=== PATIENT | male | born 1960 | race Caucasian/White ===

== ENCOUNTER 2018-05-09 12:41 | Inpatient (IN) | payer OTHER ==
[2018-05-09 13:09] VITALS: BMI 28.7
--- NOTE | 2018-05-09 15:56 | HP ---
CIWA Score Nausea/Vomitin Muscle Tremors: 4-Moderate,w/Arms Extend Anxiety: 2 Agitation: 0-Normal Activity Paroxysmal Sweats: No Perspiration Orientation: 2-Disoriented Date<2 days Tacttile Disturbances: 2-Mild Itch/Numbness/Burn Auditory Disturbances: 0-None Visual Disturbances: 0-None Headache: 2-Mild CIWA-Ar Total Score: 14 - Admission Criteria [facility]ASAS Guidelines: Admission for Medically Managed Detox: Requires at least one of the followin. CIWA greater than 12 2. Seizures within the past 24 hours 3. Delirium tremens within the past 24 hours 4. Hallucinations within the past 24 hours 5. Acute intervention needed for co occurring medical disorder 6. Acute intervention needed for co occurring psychiatric disorder 7. Severe withdrawal that cannot be handled at a lower level of care (continued vomiting, continued diarrhea, abnormal vital signs) requiring intravenous medication and/or fluids 8. Admission [facility] Chief Complaint: ETOH WITHDRAWAL SX. Allergies/Adverse Reactions: Allergies Allergy/AdvReac Type Severity Reaction Status Date / Time No Known Allergies Allergy Verified 05/09/18 15:15 History of Present Illness: PATIENT PRESENTS WITH ETOH WITHDRAWAL SX. THIS IS PATIENT'S FIRST VISIT AT [facility] X YEARS. LAST DETOX WAS IN [facility] LAST MONTH. PATIENT STARTED DRINKING AT AGE 14, DRINKS 20 12 OUNCE BEERS DAILY, LAST TIME HE DRANK BEER WAS TODAY. RAJEEV 0.181. PATIENT ALSO SMOKES MARIJUANA DAILY, AMOUNT VARIES. LAST TIME HE SMOKED WAS LAST NIGHT. DENIES HAVING SEIZURES. + FALLS AND BLACKOUTS. PATIENT HAD FALL 3 WEEKS AGO AND FRACTURED 3 RIGHT RIBS AND LEFT FOREARM. HAS LEFT BRACE IN PLACE. PATIENT WAS PRESCRIBED LIBRIUM AT THAT TIME BUT STOPPED TAKING IT DUE TO LIVER SIDE EFFECTS. PATIENT PMH INCLUDES LIVER CIRRHOSIS, CAD, S/P LEFT FEM-POP BYPASS, COPD, HTN AND DEPRESSION/ANXIETY. DENIES SI/HI AND SUICIDE ATTEMPTS. Exam Limitations: Intoxication - Ebola screening Have you traveled outside of the country in the last 21 days: No Have you had contact with anyone from an Ebola affected area: No Have you been sick,other than usual withdrawal symptoms: No Do you have a fever: No - Review of Systems Constitutional: Night Sweats, Changes in sleep EENT: reports: Throat Pain Respiratory: reports: No Symptoms reported Cardiac: reports: Edema GI: reports: Diarrhea, Poor Fluid Intake, Abdominal cramping : reports: Frequency (DUE TO ETOH INTAKE) Musculoskeletal: reports: Joint Pain, Muscle Pain Integumentary: reports: Flushing Neuro: reports: Headache, Numbness, Tingling, Tremors Endocrine: reports: Flushing Hematology: reports: No Symptoms Reported Psychiatric: reports: Orientated x3, Anxious, Depressed Patient History - Patient Medical History Hx Anemia: No Hx Asthma: Yes Hx Chronic Obstructive Pulmonary Disease (COPD): Yes Hx Cancer: No Hx Cardiac Disorders: No Hx Congestive Heart Failure: No Hx Hypertension: Yes Hx Hypercholesterolemia: No Hx Pacemaker: No HX Cerebrovascular Accident: No Hx Seizures: No Hx Dementia: No Hx Diabetes: No Hx Gastrointestinal Disorders: Yes (acid reflux.) Hx Liver Disease: Yes (CIRRHOSIS OF LIVER) Hx Genitourinary Disorders: No Hx Sexually Transmitted Disorders: No Hx Renal Disease (ESRD): No Hx Thyroid Disease: No Hx Human Immunodeficiency Virus (HIV): No Hx Hepatitis C: No Hx Depression: Yes Hx Suicide Attempt: No Hx Bipolar Disorder: No Hx Schizophrenia: No - Patient Surgical History Past Surgical History: Yes Other Surgical History: R leg bypass 09/13 and angioplasty on L leg 2016 Anesthesia Reaction: (tonsilectomy) - PPD History Previous Implant?: Yes Documented Results: Negative w/proof Implanted On Prior [facility] Admission?: No PPD to be Administered?: Yes - Smoking Cessation Smoking history: Current every day smoker Have you smoked in the past 12 months: Yes Aproximately how many cigarettes per day: 20 Hx Chewing Tobacco Use: No Initiated information on smoking cessation: Yes 'Breaking Loose' booklet given: 05/09/18 - Substance & Tx. History Hx Alcohol Use: Yes Hx Substance Use: Yes Substance Use Type: Alcohol, Marijuana Hx Substance Use Treatment: Yes - Substances Abused Alcohol Route: Oral Frequency: Daily Amount used: 20 beers Age of first use: 14 Date of Last Use: 05/09/18 Marijuana/Hashish Route: Smoking Frequency: Daily Amount used: 1 bowl of a pipe Age of first use: 14 Date of Last Use: 05/09/18 Family Disease History - Family Disease History Family Disease History: Heart Disease: Father Admission Physical Exam [facility] - Vital Signs Vital Signs: Vital Signs - 24 hr 05/09/18 13:04 Temperature 97.8 F Pulse Rate 58 L Respiratory 18 Rate Blood Pressure 123/70 - Physical General Appearance: Yes: Appropriately Dressed, Intoxicated, Tremorous, Anxious HEENTM: Yes: EOMI, Hearing grossly Normal, Normal ENT Inspection, Normocephalic , Normal Voice, NAN, Pharynx Normal Respiratory: Yes: Chest Non-Tender, Lungs Clear, No Respiratory Distress, No Accessory Muscle Use, Rhonchi (CLEARS WITH COUGH) Neck: Yes: No masses,lesions,Nodules, Supple, Trachea in good position Breast: Yes: Breast Exam Deferred Cardiology: Yes: Regular Rhythm, Regular Rate, S1, S2, Edema (LEFT LOWER LEG) Abdominal: Yes: Normal Bowel Sounds, Non Tender, Soft Genitourinary: Yes: Frequency Back: Yes: Muscle Spasm Musculoskeletal: Yes: full range of Motion, Gait Steady, Other (S/O LEFT FOREARM FRACTURE, HAS BRACE IN PLACE) Extremities: Yes: Non-Tender, Tremors, Swelling Neurological: Yes: test technician II-XII NML intact, Fully Oriented, Alert, Motor Strength 5/5, Depressed Affect Integumentary: Yes: Warm, Erythema Lymphatic: Yes: Within Normal Limits - Diagnostic (1) Alcohol dependence with uncomplicated withdrawal Current Visit: Yes Status: Acute (2) HTN (hypertension) Current Visit: Yes Status: Chronic Qualifiers: Hypertension type: unspecified Qualified Code(s): I10 - Essential (primary ) hypertension (3) Marijuana dependence Current Visit: Yes Status: Chronic (4) Left leg swelling Current Visit: Yes Status: Chronic (5) Tobacco use Current Visit: Yes Status: Chronic (6) COPD (chronic obstructive pulmonary disease) Current Visit: Yes Status: Chronic Qualifiers: Emphysema type: unspecified (7) Depressed affect Current Visit: Yes Status: Chronic Cleared for Admission [facility] - Detox or Rehab [facility] Level of Care: Medically Managed Detox Regimen/Protocol: Not Applicable (ATIVAN PROTOCOL) [facility] Breath Alcohol Content Breath Alcohol Content: 0.181 Urine Drug Screen - Results Drug Screen Negative: No Urine Drug Screen Results: THC-Marijuana, BZO-Benzodiazepines Inpatient Rehab Admission - Rehab Decision to Admit Inpatient rehab admission?: No
[2018-05-09] MEDS ORDERED: METHOCARBAMOL 500 MG TABLET PO PRN (16:07)
[2018-05-09] MEDS ORDERED: MAGNESIUM HYDROX 2400MG/30ML ORAL SUSPENSION 30 ML CUP PO PRN (16:07)
[2018-05-09] MEDS ORDERED: MAGNESIUM CITRATE 300 ML BOTTLE PO PRN (16:07)
[2018-05-09] MEDS ORDERED: guaiFENesin 200 MG/10 ML 10 ML UNIT-DOSE CUPS PO PRN (16:07)
[2018-05-09] MEDS ORDERED: MENTHOL/PHENOL 1 EACH UD MM PRN (16:07)
[2018-05-09] MEDS ORDERED: DICYCLOMINE HCL 10 MG CAPSULE PO PRN (16:07)
[2018-05-09] MEDS ORDERED: MELATONIN 5 MG TABLETS PO PRN (16:07)
[2018-05-09] MEDS ORDERED: MAG HYDROX/AL HYDROX/SIMETH 30 ML UNIT-DOSE CUP PO PRN (16:07)
[2018-05-09] MEDS ORDERED: ACETAMINOPHEN 325 MG TABLET (FP) PO PRN ×2 (16:07)
[2018-05-09] MEDS ORDERED: hydrOXYzine PAMOATE 25 MG CAPSULE (FP) PO PRN (16:07)
[2018-05-09] MEDS ORDERED: BISMUTH SUBSALICYLATE 524 MG/30 ML UD PO PRN (16:07)
[2018-05-09] MEDS ORDERED: NICOTINE POLACRILEX 2 MG GUM BUC PRN (16:07)
[2018-05-09] MEDS ORDERED: ALBUTEROL SO4 8 GM HFA INHALER IH PRN (16:09)
[2018-05-09] MEDS ORDERED: LORazepam 1 MG TABLET PO PRN (16:11)
[2018-05-09] MEDS: THIAMINE HCL 100 MG TABLET (FP) PO SCH (22:24)
[2018-05-09] MEDS: LORazepam 2 MG TABLET PO SCH (22:24)
[2018-05-09] MEDS: BUDESONIDE/FORMETEROL FUMARATE 160/4.5 mcg INHALER IH SCH (22:27)
[2018-05-09 23:52] LABS: URINE APPEARANCE CLEAR; URINE BILIRUBIN NEGATIVE (<2.0 mg/dL); URINE COLOR YELLOW; URINE GLUCOSE (UA) NEGATIVE (NEGATIVE); URINE KETONE NEGATIVE (NEGATIVE); URINE LEUK ESTERASE NEGATIVE (NEGATIVE); URINE NITRITE NEGATIVE (NEGATIVE); URINE PROTEIN NEGATIVE (NEGATIVE); URINE UROBILINOGEN 4.0 E.U/dl mg/dL (0.2-1.0)
[2018-05-10] MEDS: LORazepam 2 MG TABLET PO SCH ×3 (05:42→17:41)
[2018-05-10] MEDS: PRENATAL VITAMINS W/ FOLIC ACID TABLET (FP) PO SCH (10:05)
[2018-05-10] MEDS: RAMIPRIL 1.25 MG CAPSULE PO SCH (10:06)
[2018-05-10] MEDS: NICOTINE 21 MG/24 HOURS TOPICAL PATCH TD SCH (10:06)
[2018-05-10] MEDS: ASPIRIN 81 MG CHEWABLE TABLETS PO SCH (10:06)
[2018-05-10] MEDS: PANTOPRAZOLE 40 MG TABLET (FP) PO SCH (10:06)
[2018-05-10] MEDS: BUDESONIDE/FORMETEROL FUMARATE 160/4.5 mcg INHALER IH SCH ×2 (10:08→22:24)
[2018-05-10 10:24] LABS: ALBUMIN 3.2 g/dl (3.4-5.0); ALK PHOS 219 U/L (45-117); ANION GAP 5 MMOL/L (8-16); BILIRUBIN,TOTAL 1.2 mg/dL (0.2-1); BLOOD UREA NITROGEN 6 mg/dL (7-18); CALCIUM 8.4 mg/dL (8.5-10.1); CHLORIDE 101 mmol/L (98-107); CO2 31 mmol/L (21-32); CREATININE 0.6 mg/dL (0.55-1.3); GLUCOSE,RANDOM 104 mg/dL (74-106); POTASSIUM 4.2 mmol/L (3.5-5.1); SGOT/AST 49 U/L (15-37); SGPT/ALT 22 U/L (13-61); SODIUM 137 mmol/L (136-145); TOT PROT 6.8 g/dl (6.4-8.2)
[2018-05-10 10:27] LABS: HEMATOCRIT 37.7 % (35.4-49); HEMOGLOBIN 12.5 GM/dL (11.7-16.9); MCH 30.4 pg (25.7-33.7); MCHC 33.3 g/dl (32.0-35.9); MEAN CELL VOLUME 91.4 fl (80-96); MEAN PLT VOLUME 7.9 fl (7.5-11.1); PLATELET COUNT 124 K/MM3 (134-434); RBC 4.12 M/mm3 (4.00-5.60); RDW 16.9 % (11.9-15.9)
--- NOTE | 2018-05-10 10:55 | EKG ---
Test Reason : Blood Pressure : / mmHG Vent. Rate : 058 BPM Atrial Rate : 058 BPM P-R Int : 158 ms QRS Dur : 086 ms QT Int : 450 ms P-R-T Axes : 062 007 068 degrees QTc Int : 441 ms SINUS BRADYCARDIA OTHERWISE NORMAL ECG NO PREVIOUS ECGS AVAILABLE Confirmed by CLOTILED HERNANDEZ, MARAL (2014) on 05/10/2018 10:54:58 AM Referred By: Confirmed By:MARAL MABRY MD
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
--- NOTE | 2018-05-10 18:22 | PN ---
[facility] CIWA - CIWA Score Nausea/Vomitin-No Nausea/No Vomiting Muscle Tremors: 3 Anxiety: 3 Agitation: 0-Normal Activity Paroxysmal Sweats: No Perspiration Orientation: 0-Oriented Tacttile Disturbances: 3-Moderate Itch/Numb/Burn Auditory Disturbances: 2-Mild Harshness/Frighten Visual Disturbances: 0-None Headache: 0-None Present CIWA-Ar Total Score: 11 BHS Progress Note (SOAP) Subjective: Sweating, Anxious, Tremors. Objective: PATIENT A & O X 3, OBSERVED AMBULATING ON UNIT. IN NO ACUTE DISTRESS. 05/10/18 18:21 Vital Signs Temperature 97.4 F L 05/10/18 14:09 Pulse Rate 57 L 05/10/18 14:09 Respiratory Rate 18 05/10/18 14:09 Blood Pressure 161/73 05/10/18 14:09 O2 Sat by Pulse Oximetry (%) Laboratory Tests 05/09/18 05/10/18 05/10/18 23:17 07:00 07:00 WBC 3.0 L RBC 4.12 Hgb 12.5 Hct 37.7 MCV 91.4 MCH 30.4 MCHC 33.3 RDW 16.9 H Plt Count 124 L MPV 7.9 Sodium Potassium Chloride Carbon Dioxide Anion Gap BUN Creatinine Creat Clearance w eGFR Random Glucose Calcium Total Bilirubin AST ALT Alkaline Phosphatase Total Protein Albumin Urine Color Yellow Urine Appearance Clear Urine pH 6.0 Ur Specific [place] 1.006 L Urine Protein Negative Urine Glucose (UA) Negative Urine Ketones Negative Urine Blood Negative Urine Nitrite Negative Urine Bilirubin Negative Urine Urobilinogen 4.0 e.u/dl Ur Leukocyte Esterase Negative RPR Titer HIV 1&2 Antibody Screen Negative HIV P24 Antigen Negative 05/10/18 05/10/18 07:00 07:00 WBC RBC Hgb Hct MCV MCH MCHC RDW Plt Count MPV Sodium 137 Potassium 4.2 Chloride 101 Carbon Dioxide 31 Anion Gap 5 L BUN 6 L Creatinine 0.6 Creat Clearance w eGFR > 60 Random Glucose 104 Calcium 8.4 L Total Bilirubin 1.2 H AST 49 H ALT 22 Alkaline Phosphatase 219 H Total Protein 6.8 Albumin 3.2 L Urine Color Urine Appearance Urine pH Ur Specific [place] Urine Protein Urine Glucose (UA) Urine Ketones Urine Blood Urine Nitrite Urine Bilirubin Urine Urobilinogen Ur Leukocyte Esterase RPR Titer Nonreactive HIV 1&2 Antibody Screen HIV P24 Antigen LABS NOTED. Assessment: 05/10/18 18:23 WITHDRAWAL SYMPTOMS. LEUKOPENIA. THROMBOCYTOPENIA. ELEVATED LIVER ENZYMES (PATIENT REPORTED HISTORY OF CIRRHOSIS OF LIVER ON ADMISSION.) Plan: CONTINUE DETOX.
[2018-05-10] MEDS: BACLOFEN 10 MG TABLET (FP) PO PRN (18:43)
[2018-05-10] MEDS: LORazepam 1 MG TABLET PO SCH (22:22)
[2018-05-10] MEDS: THIAMINE HCL 100 MG TABLET (FP) PO SCH (22:22)
[2018-05-10] MEDS: MELATONIN 5 MG TABLETS PO PRN (22:23)
[2018-05-11] MEDS: LORazepam 1 MG TABLET PO SCH ×3 (05:41→17:40)
[2018-05-11] MEDS: IBUPROFEN 400 MG TABLET (FP) PO PRN ×2 (05:43→22:06)
[2018-05-11] MEDS: BUDESONIDE/FORMETEROL FUMARATE 160/4.5 mcg INHALER IH SCH ×2 (10:16→22:03)
[2018-05-11] MEDS: NICOTINE 21 MG/24 HOURS TOPICAL PATCH TD SCH (10:16)
[2018-05-11] MEDS: ASPIRIN 81 MG CHEWABLE TABLETS PO SCH (10:19)
[2018-05-11] MEDS: RAMIPRIL 1.25 MG CAPSULE PO SCH (10:19)
[2018-05-11] MEDS: PANTOPRAZOLE 40 MG TABLET (FP) PO SCH (10:20)
[2018-05-11] MEDS: PRENATAL VITAMINS W/ FOLIC ACID TABLET (FP) PO SCH (10:20)
[2018-05-11] MEDS: BACLOFEN 10 MG TABLET (FP) PO PRN (10:23)
[2018-05-11] MEDS ORDERED: LIDOCAINE 5% TOPICAL PATCH TP ONE (17:30)
--- NOTE | 2018-05-11 17:34 | PN ---
S CIWA - CIWA Score Nausea/Vomitin-No Nausea/No Vomiting Muscle Tremors: None Anxiety: 3 Agitation: 0-Normal Activity Paroxysmal Sweats: No Perspiration Orientation: 0-Oriented Tacttile Disturbances: 0-None Auditory Disturbances: 0-None Visual Disturbances: 3-Moderate Sensitivity Headache: 3-Moderate CIWA-Ar Total Score: 9 S Progress Note (SOAP) Subjective: Anxious, Fatigue, Diarrhea, H/A, Body Aches. Objective: PATIENT A & O X 3, OBSERVED AMBULATING ON UNIT. IN NO ACUTE DISTRESS. PATIENT REPORTS THAT HIS BLOOD PRESSURE HAS TENDED TO ELEVATE AT TIME SIN THE PAST WHEN HE WAS DETOXING FROM ALCOHOL. PATIENT DENIES CHEST PAIN. 05/11/18 17:29 Vital Signs Temperature 98.8 F 05/11/18 13:44 Pulse Rate 56 L 05/11/18 13:44 Respiratory Rate 18 05/11/18 13:44 Blood Pressure 142/76 05/11/18 13:44 O2 Sat by Pulse Oximetry (%) Laboratory Tests 05/09/18 05/10/18 05/10/18 23:17 07:00 07:00 WBC 3.0 L RBC 4.12 Hgb 12.5 Hct 37.7 MCV 91.4 MCH 30.4 MCHC 33.3 RDW 16.9 H Plt Count 124 L MPV 7.9 Sodium Potassium Chloride Carbon Dioxide Anion Gap BUN Creatinine Creat Clearance w eGFR Random Glucose Calcium Total Bilirubin AST ALT Alkaline Phosphatase Total Protein Albumin Urine Color Yellow Urine Appearance Clear Urine pH 6.0 Ur Specific [place] 1.006 L Urine Protein Negative Urine Glucose (UA) Negative Urine Ketones Negative Urine Blood Negative Urine Nitrite Negative Urine Bilirubin Negative Urine Urobilinogen 4.0 e.u/dl Ur Leukocyte Esterase Negative RPR Titer HIV 1&2 Antibody Screen Negative HIV P24 Antigen Negative 05/10/18 05/10/18 07:00 07:00 WBC RBC Hgb Hct MCV MCH MCHC RDW Plt Count MPV Sodium 137 Potassium 4.2 Chloride 101 Carbon Dioxide 31 Anion Gap 5 L BUN 6 L Creatinine 0.6 Creat Clearance w eGFR > 60 Random Glucose 104 Calcium 8.4 L Total Bilirubin 1.2 H AST 49 H ALT 22 Alkaline Phosphatase 219 H Total Protein 6.8 Albumin 3.2 L Urine Color Urine Appearance Urine pH Ur Specific [place] Urine Protein Urine Glucose (UA) Urine Ketones Urine Blood Urine Nitrite Urine Bilirubin Urine Urobilinogen Ur Leukocyte Esterase RPR Titer Nonreactive HIV 1&2 Antibody Screen HIV P24 Antigen LABS NOTED. 05/11/18 17:32 Assessment: 05/11/18 17:30 WITHDRAWAL SYMPTOMS. LEUKOPENIA. THREOMBOCYTOPENIA. ELEVATED ALKALINE PHOSHATASE LEVEL (PATIENT REPORTED HISTORY OF CIRRHOSIS OF LIVER AT TIME OF ADMISSION TO DETOX). 05/11/18 17:34 Plan: CONTINUE DETOX. INCREASE DAILY PO FLUID INTAKE. PRN PEPTO BISMOL PO FOR DIARRHEA. LIDODERM PATCH FOR LOWER BACK PAIN.
[2018-05-11] MEDS: LORazepam 0.5 MG TABLET PO SCH (22:04)
[2018-05-11] MEDS: MELATONIN 5 MG TABLETS PO PRN (22:04)
[2018-05-11] MEDS: THIAMINE HCL 100 MG TABLET (FP) PO SCH (22:07)
[2018-05-11] MEDS ORDERED: LORazepam 0.5 MG TABLET PO PRN (23:00)
[2018-05-12] MEDS: IBUPROFEN 400 MG TABLET (FP) PO PRN (05:53)
[2018-05-12] MEDS: LORazepam 0.5 MG TABLET PO SCH ×2 (05:55→10:41)
[2018-05-12 09:21] VITALS: BP 151/92; PULSE 53; TEMP 97.7
[2018-05-12] MEDS: NICOTINE 21 MG/24 HOURS TOPICAL PATCH TD SCH (09:35)
[2018-05-12] MEDS: RAMIPRIL 1.25 MG CAPSULE PO SCH (09:35)
[2018-05-12] MEDS: ASPIRIN 81 MG CHEWABLE TABLETS PO SCH (09:37)
[2018-05-12] MEDS: PRENATAL VITAMINS W/ FOLIC ACID TABLET (FP) PO SCH (09:37)
[2018-05-12] MEDS: BUDESONIDE/FORMETEROL FUMARATE 160/4.5 mcg INHALER IH SCH (09:41)
[2018-05-12] MEDS: PANTOPRAZOLE 40 MG TABLET (FP) PO SCH (09:42)
[2018-05-12] MEDS ORDERED: LIDOCAINE PATCH REMOVAL MC SCH (10:00)
--- NOTE | 2018-05-12 20:30 | DS ---
[facility] Detox Discharge Summary Admission Date: 05/09/18 Discharge Date: 05/12/18 - History Present History: Alcohol Dependence, Cannabis Dependence Additional Comments: PATIENT DENIES CURRENT WITHDRAWAL / DETOX SYMPTOMS AND REPORTS THAT HE FEELS WELL OVERALL AT TIME OF DISCHARGE FROM DETOX UNIT. PATIENT GOING TO [facility] ([place], [place]) FOR AFTERCARE. PATIENT ADVISED TO FOLLOW-UP WITH PUBLIC STENOGRAPHER DR. Theodore MICHAEL ([place], [place]) AFTER DISCHARGE FROM DETOX FOR GENERAL MEDICAL ASSESSMENT AND FOR LEUKOPENIA, THROMBOCYTOPENIA, ELEVATED TOTAL BILIRUBIN, AND FOR ELEVATED LIVER ENZYMES NOTED ON DETOX ADMISSION LABORATORY ASSESSMENT AND FOR HISTORY OF CIRRHOSIS OF LIVER. PATIENT VERBALIZED UNDERSTANDING OF RECOMMENDATION. COPIES OF RESULTS OF ALL LABS DRAWN WHILE ADMITTED FOR DETOX GIVEN TO PATIENT AT TIME OF DISCHARGE FROM DETOX UNIT. PATIENT DECLINED OFFER OF MEDICATION PRESCRIPTION FOR HOME MEDICATION AT TIME OF DISCHARGE FROM DETOX, NOTING THAT HE CURRENTLY HAS ADEQUATE SUPPLIES OF ALL PRESCRIBED HOME MEDICATIONS AT HOME. PATIENT WAS DISCHARGED FROM DETOX UNIT IN STABLE MEDICAL CONDITION. Pertinent Past History: Asthma, C.O.P.D., History of Cirrhosis Of Liver, HTN, History of Acid Reflux, History Of Depression, Tobacco Use, Leukopenia, Thrombocytopenia, Elevated Liver Enzymes, History of Insomnia. - Physical Exam Results Vital Signs: Vital Signs Temperature 97.7 F 05/12/18 09:20 Pulse Rate 53 L 05/12/18 09:20 Respiratory Rate 18 05/12/18 09:20 Blood Pressure 151/92 05/12/18 09:20 O2 Sat by Pulse Oximetry (%) Pertinent Admission Physical Exam Findings: WITHDRAWAL SYMPTOMS. Laboratory Tests 05/09/18 05/10/18 05/10/18 23:17 07:00 07:00 WBC 3.0 L RBC 4.12 Hgb 12.5 Hct 37.7 MCV 91.4 MCH 30.4 MCHC 33.3 RDW 16.9 H Plt Count 124 L MPV 7.9 Sodium Potassium Chloride Carbon Dioxide Anion Gap BUN Creatinine Creat Clearance w eGFR Random Glucose Calcium Total Bilirubin AST ALT Alkaline Phosphatase Total Protein Albumin Urine Color Yellow Urine Appearance Clear Urine pH 6.0 Ur Specific [place] 1.006 L Urine Protein Negative Urine Glucose (UA) Negative Urine Ketones Negative Urine Blood Negative Urine Nitrite Negative Urine Bilirubin Negative Urine Urobilinogen 4.0 e.u/dl Ur Leukocyte Esterase Negative RPR Titer HIV 1&2 Antibody Screen Negative HIV P24 Antigen Negative 05/10/18 05/10/18 07:00 07:00 WBC RBC Hgb Hct MCV MCH MCHC RDW Plt Count MPV Sodium 137 Potassium 4.2 Chloride 101 Carbon Dioxide 31 Anion Gap 5 L BUN 6 L Creatinine 0.6 Creat Clearance w eGFR > 60 Random Glucose 104 Calcium 8.4 L Total Bilirubin 1.2 H AST 49 H ALT 22 Alkaline Phosphatase 219 H Total Protein 6.8 Albumin 3.2 L Urine Color Urine Appearance Urine pH Ur Specific [place] Urine Protein Urine Glucose (UA) Urine Ketones Urine Blood Urine Nitrite Urine Bilirubin Urine Urobilinogen Ur Leukocyte Esterase RPR Titer Nonreactive HIV 1&2 Antibody Screen HIV P24 Antigen LABS NOTED. - Treatment Hospital Course: Detox Protocol Followed, Detoxed Safely, Responded well, Discharged Condition Good Patient has Accepted a Rehab Referral to: PATIENT GOING TO [facility] ([place] - Medication Discharge Medications: Ambulatory Orders Albuterol Sulfate Inhaler - [Ventolin Hfa Inhaler -] 2 inh PO Q4H PRN 05/09/18 Aspirin [ASA -] 81 mg PO DAILY 05/09/18 Budesonide/Formeterol Fumarate [SYMBICORT 160/4.5mcg -] 1 inh PO BID 05/09/18 Cyclobenzaprine HCl [Flexeril -] 10 mg PO Q8H PRN 05/09/18 Dextran 70/Hypromellose [Nature's Tears Eye Drops] 15 ml OP DAILY PRN 05/09/18 Ibuprofen [Motrin -] 600 mg PO Q6H PRN 05/09/18 Melatonin 5 mg PO HS 05/09/18 Pantoprazole Sodium [Protonix -] 40 mg PO DAILY 05/09/18 Propranolol HCl 20 mg PO BID 05/09/18 Ramipril 1.25 mg PO DAILY 05/09/18 - Diagnosis (1) Alcohol dependence with uncomplicated withdrawal Status: Acute (2) COPD (chronic obstructive pulmonary disease) Status: Chronic Qualifiers: COPD type: emphysema Emphysema type: unspecified Qualified Code(s): J43.9 - Emphysema, unspecified (3) Depressed affect Status: Chronic (4) HTN (hypertension) Status: Chronic Qualifiers: Hypertension type: unspecified Qualified Code(s): I10 - Essential (primary ) hypertension (5) Left leg swelling Status: Chronic (6) Marijuana dependence Status: Chronic (7) Tobacco use Status: Chronic (8) Elevated alkaline phosphatase level Status: Acute (9) Insomnia Status: Acute Qualifiers: Insomnia type: unspecified Qualified Code(s): G47.00 - Insomnia, unspecified (10) Leukopenia Status: Acute Qualifiers: Leukopenia type: unspecified Qualified Code(s): D72.819 - Decreased white blood cell count, unspecified (11) Substance induced mood disorder Status: Acute (12) Thrombocytopenia Status: Acute (13) Elevated liver enzymes Status: Acute - AMA Did Patient Leave Against Medical Advice: No
--- NOTE | 2018-05-12 20:32 | PN ---
[facility] Progress Note (SOAP) Subjective: Patient denies current Withdrawal / Detox symptoms and reports that he feels well overall. Objective: PATIENT A & O X 3, OBSERVED AMBULATING ON UNIT. IN NO ACUTE DISTRESS. 05/12/18 20:30 Vital Signs Temperature 97.7 F 05/12/18 09:20 Pulse Rate 53 L 05/12/18 09:20 Respiratory Rate 18 05/12/18 09:20 Blood Pressure 151/92 05/12/18 09:20 O2 Sat by Pulse Oximetry (%) Laboratory Tests 05/09/18 05/10/18 05/10/18 23:17 07:00 07:00 WBC 3.0 L RBC 4.12 Hgb 12.5 Hct 37.7 MCV 91.4 MCH 30.4 MCHC 33.3 RDW 16.9 H Plt Count 124 L MPV 7.9 Sodium Potassium Chloride Carbon Dioxide Anion Gap BUN Creatinine Creat Clearance w eGFR Random Glucose Calcium Total Bilirubin AST ALT Alkaline Phosphatase Total Protein Albumin Urine Color Yellow Urine Appearance Clear Urine pH 6.0 Ur Specific [place] 1.006 L Urine Protein Negative Urine Glucose (UA) Negative Urine Ketones Negative Urine Blood Negative Urine Nitrite Negative Urine Bilirubin Negative Urine Urobilinogen 4.0 e.u/dl Ur Leukocyte Esterase Negative RPR Titer HIV 1&2 Antibody Screen Negative HIV P24 Antigen Negative 05/10/18 05/10/18 07:00 07:00 WBC RBC Hgb Hct MCV MCH MCHC RDW Plt Count MPV Sodium 137 Potassium 4.2 Chloride 101 Carbon Dioxide 31 Anion Gap 5 L BUN 6 L Creatinine 0.6 Creat Clearance w eGFR > 60 Random Glucose 104 Calcium 8.4 L Total Bilirubin 1.2 H AST 49 H ALT 22 Alkaline Phosphatase 219 H Total Protein 6.8 Albumin 3.2 L Urine Color Urine Appearance Urine pH Ur Specific [place] Urine Protein Urine Glucose (UA) Urine Ketones Urine Blood Urine Nitrite Urine Bilirubin Urine Urobilinogen Ur Leukocyte Esterase RPR Titer Nonreactive HIV 1&2 Antibody Screen HIV P24 Antigen LABS NOTED. Assessment: 05/12/18 20:31 COMPLETION OF DETOX REGIMEN. Plan: SINCE PATIENT DENIES CURRENT WITHDRAWAL / DETOX SYMPTOMS AND REPORTS THAT HE FEELS WELL OVERALL, AT PATIENT'S REQUEST, HE WAS GRANTED AN EARLY DISCHARGE FROM DETOX UNIT.
== END 2018-05-12 10:39 | disposition home or self-care (01) | DRG 775 ==
LOC: YASAS 12:41 → Y3N 17:19
PROVIDERS: ADMIT Surgery; ATTEND Surgery
PROC: HZ2ZZZZ Detoxification Services for Substance Abuse Treatment (ICD-10-PCS; principal; 2018-05-09)
DX: F10.230 Alcohol dependence with withdrawal, uncomplicated (principal); F12.20 Cannabis dependence, uncomplicated; F17.210 Nicotine dependence, cigarettes, uncomplicated; J43.9 Emphysema, unspecified; J45.909 Unspecified asthma, uncomplicated; I10 Essential (primary) hypertension; G47.00 Insomnia, unspecified; K21.9 Gastro-esophageal reflux disease without esophagitis; D72.819 Decreased white blood cell count, unspecified; D69.6 Thrombocytopenia, unspecified; R74.8 Abnormal levels of other serum enzymes; R45.89 Other symptoms and signs involving emotional state; M79.89 Other specified soft tissue disorders
CPT/HCPCS: 36415; 80053; 81003; 85027; 86593; 87389; 93005; 93010; J0475